=== PATIENT | male | born 1980 | race Caucasian/White ===

== ENCOUNTER 2017-12-05 23:54 | Emergency (ER) | payer OTHER ==
[2017-12-06] MEDS ORDERED: KETOROLAC TROMETHAMINE INJ 30 MG/ML VIAL IM ONE (00:06)
--- NOTE | 2017-12-06 00:08 | ED.PDOC ---
History of Present Illness - General Chief Complaint: Abdominal Pain Stated Complaint: RLQ abdominal pain Time Seen by Provider: 12/05/17 23:55 Source: patient Exam Limitations: no limitations - History of Present Illness Initial Comments: Patient presents with right flank pain that radiates to his groin. 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 It is sharp in nature and constant. He is having trouble getting into a comfortable position. No previous episodes. No history of nephrolithiasis. No urinary symptoms. No other complaints. Timing/Duration: other - just WAREHOUSE INVENTORY CLERK Severity: severe Improving Factors: nothing Worsening Factors: nothing Associated Symptoms: denies symptoms Allergies/Adverse Reactions: Allergies NO KNOWN ALLERGY Allergy (Verified 12/06/17 00:02) Home Medications: Ambulatory Orders NK [NK] 12/06/17 Review of Systems - Review of Systems Constitutional: States: no symptoms reported EENTM: States: no symptoms reported Respiratory: States: no symptoms reported Cardiology: States: no symptoms reported Gastrointestinal/Abdominal: States: see HPI Genitourinary: States: see HPI Musculoskeletal: States: no symptoms reported Skin: States: no symptoms reported Neurological: States: no symptoms reported Endocrine: States: no symptoms reported Hematologic/Lymphatic: States: no symptoms reported Past Medical History (General) - Patient Medical History Hx Diabetes: No Surgical History: no surgical history - Vaccination History Immunizations Up to Date: No Family Medical History - Family History Father Family History: Unknown Progress - Progress Progress: 12/06/17 02:17 CT ab/pelvis without contrast showed a mass in the right pelvis. I spoke with the radiologist who suggested to repeat the pelvic CT with contrast to see what the mass was. The pelvic CT showed phlegmon/abscess possibly due to acute appendicitis or mucocele. Patient was had already been given toradol 30 mg IM x one and morphine 4 mg IV x one. Blood cultures were drawn and Zosyn 3.375 grams IV x one started. NS at 100 ml/hour. Dr. Dupree with general surgery at [facility] accepted the patient for transfer. Departure - Departure Clinical Impression: Appendicitis Disposition: Transfer to Hospital Condition: Fair Departure Forms: ED Discharge - Pt. Copy, Patient Portal Self Enrollment Instructions: DI for Abdominal Pain-Adult Diet: other - NPO Activity: as per physical therapy Home Medications: Ambulatory Orders NK [NK] 12/06/17
--- NOTE | 2017-12-06 00:59 | CT ---
EXAM DESCRIPTION: Abdoment/Pelvis w/o Contrast CLINICAL HISTORY: 37 years Male, abdominal pain COMPARISON: None. TECHNIQUE: Contiguous axial CT images of the abdomen and pelvis were acquired without administration of intravenous contrast. Coronal and sagittal reformatted images are provided. This exam was performed according to our departmental dose-optimization program which includes use of Automated Exposure Control, adjustment of the mA and/or kV according to patient size and/or use of iterative reconstruction technique. FINDINGS: Chest base: Unremarkable. Liver: Unremarkable. Gallbladder: Unremarkable. Spleen: Unremarkable. Adrenals: Unremarkable. Pancreas: Unremarkable. Right Kidney: No renal stones or hydronephrosis. Left Kidney: No renal stones or hydronephrosis. Aorta and branch vessels: Unremarkable. Lymph nodes: No lymphadenopathy. Bowels and peritoneum: Masslike region within the quadrant measuring 10 x 5.6 x 5.1 cm (Transverse x AP x CC) with linear areas of calcification and adjacent mesenteric infiltrative change. This region encompasses the cecum, appendix, and portions of small bowel. Pelvic organs: Unremarkable. Bladder: Unremarkable. Bones and soft tissues: No acute osseous or soft tissue abnormalities. IMPRESSION: Right lower quadrant mass measuring up to 10 cm. Mass encompasses the region of the cecum and appendix. Underlying appendicitis cannot be excluded given lack of intravenous contrast. Consider CT pelvis with contrast to help delineate inflammatory phlegmon with abscess versus soft tissue mass. Critical findings discussed with Dr. Rafa Zimmerman by Yomi Tierney MD at 12/06/2017 12:57 AM AIRCRAFT SALES REPRESENTATIVE by phone. Electronically signed by: Yomi Tierney MD 12/06/2017 12:58 AM AIRCRAFT SALES REPRESENTATIVE
[2017-12-06] MEDS ORDERED: MORPHINE SULFATE INJ 10 MG/ML VIAL IV ONE ×2 (01:07→02:28)
--- NOTE | 2017-12-06 01:55 | CT ---
EXAM: CT pelvis with contrast. INDICATION: Right-sided mass. TECHNIQUE: Contiguous axial CT images of the pelvis. Intravenous contrast: Present. Oral contrast: Absent. DLP 728 mGy-cm. This exam was performed according to our departmental dose-optimization program, which includes automated exposure control, adjustment of the mA and/or kV according to patient size and/or use of iterative reconstruction technique. COMPARISON: 12/06/2017. FINDINGS: Viscera: Partially imaged. Again noted is the right lower quadrant is a hypodense collection which measures proximally 8.5 x 4.5 cm with some punctate internal calcifications. There is small bowel adjacent to this hypodense collection. The appendix is not uniquely identified. Urinary bladder: Unremarkable. Bones: Unremarkable. Soft tissues: Unremarkable. IMPRESSION: Hypodense collection within the right lower quadrant with some calcifications. The appendix is not uniquely identified. This may represent a phlegmon/abscess related to acute appendicitis or possibly a mucocele. Electronically signed by: Aldo Castillo MD 12/06/2017 1:55 AM [facility] Workstation: [id number]
[2017-12-06] MEDS ORDERED: PIPERACILLIN/TAZOBACTAM 3.375 GM in SODIUM CHLORIDE 0.9% 100ML 100 ML IVPB ONE (02:02)
[2017-12-06] MEDS ORDERED: SODIUM CHLORIDE 0.9% 1000ML 1,000 ML IVS PRN (02:02)
[2017-12-06] MEDS ORDERED: PIPERACILLIN/TAZOBACTAM 3.375 GM VIAL IVPB ONE (02:13)
[2017-12-06] MEDS ORDERED: SODIUM CHLORIDE 0.9% 100ML 100 ML IVPB ONE (02:13)
[2017-12-06] MEDS ORDERED: ACETAMINOPHEN IV 1000MG 100 ML ONE (02:23)
[2017-12-06 02:25] VITALS: BP 134/74; O2SAT 98
[2017-12-06] MEDS ORDERED: ACETAMINOPHEN IVPB ONE (02:27)
[2017-12-06 03:54] VITALS: TEMP 100.1
== END 2017-12-06 03:54 | disposition short-term general hospital (02) ==
LOC: ER 23:54
DX: K37 Unspecified appendicitis (principal)
CPT/HCPCS: 36415; 72192; 74176; 80048; 81001; 85025; 87040; J1885; J2270; J2543; J7030; J7050

== ENCOUNTER → 2018-01-21 | Outpatient (CLI) | payer OTHER ==
--- NOTE | 2018-01-21 10:56 | RAD ---
EXAM DESCRIPTION: Chest,1 View CLINICAL HISTORY: PICC TIP PLACEMENT, B95.2 COMPARISON: None. IMPRESSION: Single AP portable upright view of the chest shows cardiac silhouette and pulmonary vasculature to be within normal limits. Left-sided PICC line is seen in good positioning with tip in the expected location of the distal superior vena cava. Lungs are normally aerated and clear. No obvious pleural effusion or pneumothorax is seen. Electronically signed by: Henry Up MD 01/21/2018 10:55 AM CDT
== END ==
LOC: RAD 10:29
PROVIDERS: ATTEND Internal Medicine Infectious Disease
DX: B95.2 Enterococcus as the cause of diseases classified elsewhere (principal); Z95.9 Presence of cardiac and vascular implant and graft, unspecified